=== PATIENT | male | born 1995 | race Caucasian/White ===

== ENCOUNTER 2018-05-03 14:11 | Emergency (ER) | payer BC ==
--- NOTE | 2018-05-03 17:01 | ED ---
Neurological HPI - HPI Summary HPI Summary: This is boone Patterson documenting for attending Garrett Aguilar MD. This patient is a 22 year old M presenting to [facility] with a chief complaint of loss of feeling and touch sensation all over his body since 04/30/2018. He reports that it is fluctuating and increased heart rate. Patient denies changes in weight and abnormal gait. He has had similar episodes 3-4 times before over the course of the past 3 years. The last episode occurred about a year ago and spontaneously resolved after a week. His house has well water but he does not drink it. Patient thought it might be related to stress, as he was just tested for a promotion. However, the symptoms did not resolve after he earned his promotion. The patient works at the [employer]. He has no FHx of MS or neurological disorders, but he has a FHx of HTN. The patient does not smoke tobacco, drink alcohol, or use any other substances. - History of Current Complaint Chief Complaint: EDGeneral Stated Complaint: NUMBNESS ALL OVER BODY Time Seen by Provider: 05/03/18 16:39 Hx Obtained From: Patient Onset/Duration: Started days ago - started 04/30/2018 Timing: Constant - fluctuating Neurological Deficit Location: Generalized Pain Intensity: 0 Pain Scale Used: 0-10 Numeric Character: Numbness/Tingling Associated Signs and Symptoms: Positive: Negative - denies changes in weight and abnormal gait - Allergy/Home Medications Allergies/Adverse Reactions: Allergies Allergy/AdvReac Type Severity Reaction Status Date / Time No Known Allergies Allergy Verified 01/01/16 17:46 PMH/Surg Hx/FS Hx/Imm Hx Endocrine/Hematology History: Denies: Hx Diabetes, Hx Thyroid Disease Cardiovascular History: Denies: Hx Hypertension Respiratory History: Denies: Hx Asthma, Hx Chronic Obstructive Pulmonary Disease (COPD) GI History: Denies: Hx Ulcer - Surgical History Surgery Procedure, Year, and Place: denies Infectious Disease History: No Infectious Disease History: Denies: Hx Clostridium Difficile, Hx Hepatitis, Hx Human Immunodeficiency Virus (HIV), Hx of Known/Suspected MRSA, Hx Shingles, Hx Tuberculosis, Traveled Outside the [place] in Last 30 Days - Family History Known Family History: Positive: Other - Stroke Negative: Cardiac Disease, Diabetes - Social History Occupation: Employed Full-time Lives: With Family Alcohol Use: None Substance Use Type: Reports: None Smoking Status (MU): Never Smoked Tobacco Review of Systems Negative: Other - Denies changes in weight Positive: Other - Increased heart rate Negative: Other - denies abnormal gait Positive: Numbness - Fluctutating generalized numbness All Other Systems Reviewed And Are Negative: Yes Physical Exam - Summary Physical Exam Summary: Appearance: Well appearing, no pain distress Skin: warm, dry, reflects adequate perfusion Head/face: normal Eyes: EOMI, ILENE ENT: normal Neck: supple, non-tender Respiratory: CTA, breath sounds present Cardiovascular: RRR, pulses symmetrical Abdomen: non-tender, soft Bowel Sounds: present Musculoskeletal: normal, strength/ROM intact Neuro: normal, sensory motor intact, A&Ox3 Triage Information Reviewed: Yes Vital Signs On Initial Exam: Initial Vitals Temp Pulse Resp BP Pulse Ox 97.9 F 90 18 143/83 100 05/03/18 14:36 05/03/18 14:36 05/03/18 14:36 05/03/18 14:36 05/03/18 14:36 Vital Signs Reviewed: Yes Diagnostics - Vital Signs Vital Signs Temp Pulse Resp BP Pulse Ox 05/03/18 14:36 97.9 F 90 18 143/83 100 - Laboratory Result Diagrams: 05/03/18 16:58 05/03/18 16:58 Lab Statement: Any lab studies that have been ordered have been reviewed, and results considered in the medical decision making process. Course/Dx - Course Course Of Treatment: Patient has fleeting diffuse paresthesias that are now somewhat improved. This is occurred in the past. He's been having a lot of anxiety about her recent test for a job. He pass this test and was able to get the job. But he still having the symptoms. Laboratories all negative. Neurologically intact. No contributory family history. Follow-up with primary care physician and neurology. - Differential Dx Differential Diagnoses Neuro: Positive: Other - Lyme, MS, aspartamine tox, lead toxicity, metabolic abnormality, anxiety/mental health - Diagnoses Provider Diagnoses: Paresthesia Discharge - Sign-Out/Discharge Documenting (check all that apply): Patient Departure - D/C - Discharge Plan Condition: Good Disposition: HOME Patient Education Materials: Paresthesia (ED) Referrals: [facility] [Outside] [facility] [Outside] Delilah Alvarenga MD [Medical Doctor] - Additional Instructions: Stay well-hydrated. We will call you with a positive thyroid test or Lyme disease test. Referral to primary care physician has been provided to you. You 're also given referral to the [facility] which can perform routine follow-up of the ER patient's that don't have doctors. This will require further testing. Return if worse, increased numbness/weakness, new symptoms or other concerns. - Billing Disposition and Condition Condition: GOOD Disposition: Home
[2018-05-03 17:05] LABS: ABS Basophils 0 10^3/ul (0-0.2); ABS Eosinophils 0.4 10^3/ul (0-0.6); ABS Lymphocytes 2.4 10^3/ul (1.0-4.8); ABS Monocytes 0.5 10^3/ul (0-0.8); ABS Neutrophils 4.1 10^3/ul (1.5-7.7); ABS Nucleated RBC 0 10^3/ul; Eosinophil % 5.9 % (0-6); Hematocrit 47 % (42-52); Hemoglobin 16.1 g/dl (14.0-18.0); Lymphocyte % 31.8 % (25-47); Mean Corpuscular HGB Conc 35 g/dl (31-36); Mean Corpuscular Hemoglobin 30 pg (27-31); Mean Corpuscular Volume 86 fL (80-94); Mean Platelet Volume 7.3 um3 (7.4-10.4); Nucleated Red Blood Cells % 0.1; Platelet Count 305 10^3/ul (150-450); Red Blood Count 5.43 10^6/ul (4.00-5.40); Red Cell Distribution Width 13 % (10.5-15); White Blood Count 7.5 10^3/ul (3.5-10.8)
[2018-05-03 17:21] LABS: EGFR Non-African American 111.2 (>60)
[2018-05-03 18:30] VITALS: BP 119/71
== END 2018-05-03 18:09 | disposition home or self-care (01) ==
LOC: ED 14:11
DX: R20.2 Paresthesia of skin (principal); Z82.3 Family history of stroke
CPT/HCPCS: 36415; 80048; 84443; 85025; 86140; 86618; 99281